=== PATIENT | female | born 1945 | race Caucasian/White ===

== ENCOUNTER → 2023-11-20 11:20 | Outpatient (REF) | payer MEDICARE, OTHER, SELFPAY ==
[2023-11-20 13:34] LABS: % Basophils 0.4 % (0-2); % Eosinophils 0.6 % (0-6); % Immature Granulocytes 0.3 % (0-0.5); % Lymphocytes 6.4 % (20.5-51.1); % Monocytes 7.5 % (1.7-9.3); % Neutrophils 84.8 % (42.2-75.2); Absolute Eosinophils 0.1 10^3/uL (0-0.7); Absolute Lymphocytes 0.6 10^3/uL (1.2-3.4); Absolute Monocytes 0.7 10^3/uL (0.1-0.6); Hematocrit 37.6 % (37.0-47.0); Hemoglobin 12.4 g/dL (12.0-16.0); Mean Corpuscular Hgb 30.5 pg (27.0-31.0); Mean Corpuscular Volume 92.4 fL (81.0-99.0); Mean Platelet Volume 10.8 fL (7.4-10.4); Nucleated Red Blood Cells % 0 %; Platelet Count 196 10^3/uL (130-400); Red Blood Cell Count 4.07 10^6/uL (4.20-5.40); Red Cell Dist. Width 13.2 % (11.5-14.5); White Blood Cell Count 9.4 10^3/uL (4.8-10.8)
[2023-11-20 14:18] LABS: ALT (SGPT) 15 U/L (0-35); AST (SGOT) 25 U/L (14-36); Albumin 4.4 g/dl (3.5-5.0); Alkaline Phosphatase 65 U/L (38-126); Blood Urea Nitrogen 20 mg/dl (7-17); Carbon Dioxide 24 mmol/L (22-30); Chloride 103 mmol/L (98-107); Glucose 90 mg/dl (70-99); Potassium 4.3 mmol/L (3.5-5.1); Sodium 143 mmol/L (135-145); Total Bilirubin 0.5 mg/dl (0.2-1.3); Total Protein 6.9 g/dl (6.3-8.2); eGFR > 60.00
== END ==
LOC: REG 11:20
PROVIDERS: ATTENDING PHYSICIAN Internal Medicine Cardiovascular Disease
DX: I25.10 Atherosclerotic heart disease of native coronary artery without angina pectoris (principal); R39.9 Unspecified symptoms and signs involving the genitourinary system
CPT/HCPCS: 36415; 80053; 85025

== ENCOUNTER 2023-12-05 05:56 | Day surgery (SDC) | payer MEDICARE, OTHER, SELFPAY ==
[2023-12-05] VITALS (28 sets, daily range): BP systolic 112–154; BP diastolic 65–132; BMI 21.7
--- NOTE | 2023-12-05 09:34 | ITS.CL.CATH ---
[employer] - Catheterization
Cardiac Catheterization
Procedure Report:
CARDIAC CATHETERIZATION REPORT
Date of Procedure: 12/05/2023
Referring: Israel Siegel MD
Indication: Markedly elevated coronary calcium score with angina despite nonischemic stress test
�
HEMODYNAMIC DATA
AO: 136/72
LV: 136/10
�
LEFT VENTRICULOGRAPHY: Normal ventricular wall motion with EF 59%
�
CORONARY ANGIOGRAPHY
Dominance: Right
Left Main: Normal
LAD: Moderate calcification with mild luminal irregularities
Circumflex: Trivial luminal irregularities
RCA: Moderate to severe calcification of the proximal and mid RCA. There is a focal calcified 90% stenosis in the mid RCA. The acute marginal branch becomes the PDA and the RCA terminates with two right posterolateral branches
Angioplasty: At the conclusion the diagnostic study we proceeded with angioplasty and stenting of the 90% calcific mid RCA lesion. Heparin was administered to keep the ACT greater than 250. Plavix 600 mg was given at the procedure conclusion. A 6
[place] JR4 guide was used. A BMW wire was advanced into the right posterolateral branch. Angioplasty with a 2.25 x 15 Euphora balloon inflated to 12 kya was performed. There appeared to be complete balloon expansion. We then attempted
unsuccessfully to pass a 3.25 x 23 Xience CAT-the stent would not pass through moderate calcific disease proximal to the lesion which we had planned to cover with the stent. Accordingly, a 2.5 x 15 NC Euphora was used to dilate the entire lesion
with segmental inflations to 12 kya again demonstrating complete balloon expansion. A 3.25 x 23 Xience CAT was then successfully placed to cover the entire segment of disease with deployment pressure 15 kya followed by postdilatation with a 3.25 NC
Euphora to maximum 18 kya. The final angiographic result was outstanding. There were no procedural complications.
�
Closure Device: None-of note we were unable to pass a soft guidewire through the right radial artery more than several centimeters and converted to a femoral approach for the procedure. Multiple angiograms suggested the puncture site to be at the
bifurcation of the common femoral artery and I did not feel this was safe for closure device. Sheath will be removed with manual compression once the ACT falls to less than 180
�
Radiation (mGy): 262
DAP (cm2.Gy): 24.2
Fluoroscopy time: 10.3 minutes
�
CONCLUSIONS
1:�Single-vessel CAD as described
2:�Normal left ventricular function with EF 59%
3. Successful stenting of mid RCA disease using 3.25 x 23 Xience CAT with outstanding angiographic result
4. Recommend dual antiplatelet therapy for 12 months and lifelong aspirin therapy as well as continued aggressive risk factor modification efforts. Target LDL less than 70 and ideally 55
�
�
Copy to: Katheryn Jones MD ([place], [place]), , Jarrell Deng MD([place], [place]), Israel Siegel MD
�
Israel Siegel MD, [facility], [facility]
[2023-12-05 09:48] LABS: ACT-LR - POC > 397 Seconds (116-155)
[2023-12-05 10:08] LABS: ACT-LR - POC 203 Seconds (116-155)
[2023-12-05 10:38] LABS: ACT-LR - POC 192 Seconds (116-155)
[2023-12-05 11:06] LABS: ACT-LR - POC 186 Seconds (116-155)
--- NOTE | 2023-12-05 13:29 | W.PN.UPDATE ---
Update Note
Progress Note Update
Pt seen post RCA PCI. RFA site with manual compression, no ht/bleeding, non tender. Post EKG SB 50s, no acute changes, no vt/arrhythmia. OOB ambulating. Pt understands importance of uninterrupted DAPT w/asa, plavix. Cardiac rehab consulted. Followup
with Dr. Musa arranged. Home later today if groin site/tele remain stable.
== END 2023-12-05 16:00 | disposition home or self-care (01) ==
LOC: CATH 05:56
PROVIDERS: ATTENDING PHYSICIAN Internal Medicine Cardiovascular Disease; OTHER PHYSICIAN Internal Medicine Cardiovascular Disease
DX: I25.119 Atherosclerotic heart disease of native coronary artery with unspecified angina pectoris (principal); I25.84 Coronary atherosclerosis due to calcified coronary lesion; Z79.02 Long term (current) use of antithrombotics/antiplatelets; Z79.82 Long term (current) use of aspirin; Z79.899 Other long term (current) drug therapy; Z79.52 Long term (current) use of systemic steroids
CPT/HCPCS: 85347; 93005; 93458; C1725; C1769; C1874; C1894; C9600; Q9967

== ENCOUNTER 2024-01-15 10:45 | Outpatient (RCR) | payer MEDICARE, OTHER, SELFPAY | END 2024-01-15 23:59 | disposition home or self-care (01) | LOC: CRHB 10:45 | PROVIDERS: ATTENDING PHYSICIAN Internal Medicine Cardiovascular Disease | DX: I25.10 Atherosclerotic heart disease of native coronary artery without angina pectoris (principal); Z95.5 Presence of coronary angioplasty implant and graft | CPT/HCPCS: G0422; G0423 ==

== ENCOUNTER 2024-01-29 10:37 | Outpatient (RCR) | payer MEDICARE, OTHER, SELFPAY | END 2024-01-29 23:59 | disposition home or self-care (01) | LOC: CRHB 10:37 | PROVIDERS: ATTENDING PHYSICIAN Internal Medicine Cardiovascular Disease | DX: I25.10 Atherosclerotic heart disease of native coronary artery without angina pectoris (principal); Z95.5 Presence of coronary angioplasty implant and graft | CPT/HCPCS: G0422; G0423 ==

== ENCOUNTER → 2025-01-01 08:28 | Outpatient (REF) | payer MEDICARE, OTHER, SELFPAY ==
[2025-01-01 09:09] LABS: Hematocrit 41.3 % (37.0-47.0); Hemoglobin 13.2 g/dL (12.0-16.0); Mean Corp Hgb Conc. 32.0 g/dL (33.0-37.0); Mean Corpuscular Volume 95.6 fL (81.0-99.0); Nucleated Red Blood Cells % 0 %; Platelet Count 185 10^3/uL (130-400); Red Cell Dist. Width 13.2 % (11.5-14.5)
[2025-01-01 09:34] LABS: ALT (SGPT) 16 U/L (0-35); AST (SGOT) 23 U/L (14-36); Albumin 4.5 g/dl (3.5-5.0); Alkaline Phosphatase 58 U/L (38-126); Blood Urea Nitrogen 14 mg/dl (7-17); Calcium 9.5 mg/dl (8.4-10.2); Carbon Dioxide 27 mmol/L (22-30); Chloride 107 mmol/L (98-107); Glucose 97 mg/dl (70-99); Potassium 3.9 mmol/L (3.5-5.1); Sodium 140 mmol/L (135-145); Total Protein 7.6 g/dl (6.3-8.2); eGFR > 60.00
== END ==
LOC: REG 08:28
PROVIDERS: ATTENDING PHYSICIAN Student in an Organized Health Care Education/Training Program; REFERRING PHYSICIAN Internal Medicine Cardiovascular Disease
DX: I25.10 Atherosclerotic heart disease of native coronary artery without angina pectoris (principal); R06.09 Other forms of dyspnea; I10 Essential (primary) hypertension
CPT/HCPCS: 36415; 80053; 85025

== ENCOUNTER 2025-01-04 11:03 | Day surgery (SDC) | payer MEDICARE, OTHER, SELFPAY ==
[2025-01-04] VITALS (13 sets, daily range): BP systolic 83–142; BP diastolic 48–101; BMI 21.4
[2025-01-04] MEDS: NSS 175 ML IV (11:53)
--- NOTE | 2025-01-04 14:56 | ITS.CL.PN ---
Surgical Technician - Procedure Note
Procedure
Procedure Note:
CARDIAC CATHETERIZATION REPORT
Date of Procedure: 01/04/2025
Referring: Dr. Hossein Deng MD
Indication: accelerating angina
PROCEDURE(S)
1. left heart catheterization
2. coronary angiography
ACCESS: 6F left radial artery (closure: radial band)
CATHETERS
1. 6F JR4
2. 6F JL3.5
MODERATE SEDATION: 25 minutes of moderate sedation was utilized. An independent bilingual medical assistant was present to assist with and help manage the patient's level of consciousness and physiologic status.
HEMODYNAMIC DATA
LV 124/8 (EDP 17) mmHg
AO 124/68 (mean 92) mmHg
CORONARY ANGIOGRAPHY
Dominance: Right
LM: Large with mild disease.
LAD: Large vessel giving rise to a moderate caliber OM1/ramus, large OM2, and small LPL branches. There are mild luminal irregularities only.
LCx: Large vessel giving rise to a moderate caliber D1 and small D2 before wrapping around the apex. There are mild luminal irregularities only.
RCA: large vessel giving rise to a large marginal branch that goes on to serve as the RPDA and a moderate caliber RPL. There is a widely patent stent in the proximal to mid RCA and otherwise mild luminal irregularities only.
RADIATION: dose 194 mGy; DAP 15 Gy*cm2; fluoroscopy time 4.8 min
CONCLUSIONS
1. Nonobstructive coronary artery disease as described in right dominant system with widely patent proximal to mid RCA stent.
2. Mildly elevated LV filling pressure and no aortic stenosis
RECOMMENDATIONS
1. Aggressive secondary prevention of coronary artery disease
2. Reasonable to discontinue Plavix as greater than 1 year post PCI with widely patent RCA stent
3. Further workup for etiology of chest discomfort not related to epicardial coronary artery disease
Copy to: Dr. Hossein Deng MD (gas desulfurizer); Dr. Katheryn Jones MD (PCP)
Signed: Luis F Coronel MD, PhD
== END 2025-01-04 17:30 | disposition home or self-care (01) ==
LOC: CATH 11:03
PROVIDERS: ATTENDING PHYSICIAN Student in an Organized Health Care Education/Training Program
DX: I25.110 Atherosclerotic heart disease of native coronary artery with unstable angina pectoris (principal); Z95.5 Presence of coronary angioplasty implant and graft; J84.10 Pulmonary fibrosis, unspecified; I10 Essential (primary) hypertension; E78.5 Hyperlipidemia, unspecified; Z79.02 Long term (current) use of antithrombotics/antiplatelets; Z79.82 Long term (current) use of aspirin; Z79.899 Other long term (current) drug therapy; Z79.52 Long term (current) use of systemic steroids
CPT/HCPCS: 99152; 99153; 93458; C1769; C1894; Q9967